=== PATIENT | male | born 1995 | race African-American/Black ===

== ENCOUNTER 2020-08-30 06:44 | Emergency (ER) | payer SELFPAY ==
[2020-08-30 08:05] LABS: APPEARANCE,URINE CLEAR; BILIRUBIN,URINE NEGATIVE (NEGATIVE); COLOR,URINE STRAW; GLUCOSE, URINE NEGATIVE (NEGATIVE); KETONES,URINE NEGATIVE (NEGATIVE); LEUKOCYTE ESTERASE,URINE NEGATIVE (NEGATIVE); NITRITE,URINE NEGATIVE (NEGATIVE); PROTEIN,URINE NEGATIVE (NEGATIVE); URINE SPECIFIC GRAVITY 1.011; UROBILINOGEN,URINE NEGATIVE mg/dL (<2.0)
--- NOTE | 2020-08-30 10:21 | RADIOLOGY REPORT (SQ) ---
EXAM DESCRIPTION: U/S SCROTUM W/DOPPLER IMAGES COMPLETED DATE/TIME: 08/30/2020 10:10 am REASON FOR STUDY: LEFT SCROTAL PAIN COMPARISON: None. TECHNIQUE: Static and realtime blanco scale imaging of the scrotum and testes. Selected color Doppler and spectral images recorded to document blood flow. LIMITATIONS: None. FINDINGS: RIGHT: TESTICLE: Normal size. Normal echotexture. Normal blood flow. No mass. EPIDIDYMIS: Normal. HYDROCELE OR VARICOCELE: No. HERNIA OR EXTRA-TESTICULAR MASS: No. OTHER: No other significant finding. LEFT: TESTICLE: Normal size. Normal echotexture. Normal blood flow. No mass. EPIDIDYMIS: Normal. HYDROCELE OR VARICOCELE: Small left-sided varicocele. HERNIA OR EXTRA-TESTICULAR MASS: No. OTHER: No other significant finding. IMPRESSION: Small left-sided varicocele. No evidence of torsion. TECHNICAL DOCUMENTATION: JOB ID: [id number] [employer]- All Rights Reserved Reading location - IP/workstation name: [email or web address]
[2020-08-30 10:53] VITALS: BP 146/85
--- NOTE | 2020-08-30 11:00 | ER Document Report ---
Entered by CASSY DRUMMOND SCRIBE 08/30/20 0823 Acting as scribe for:SANTHOSH PARRISH MD ED GI/ - General Chief Complaint: Testicular Swelling Stated Complaint: TESTICLE PAIN Mode of Arrival: Ambulatory Information source: Patient Notes: This 24 year old male patient presents to the ED today for with complaints of testicular pain. Patient states that he noticed a "little bump" on the base of his shaft x3 days ago; it was not painful and there was no drainage. He reports that he started having left testicular pain while at work this morning at 0400 and it made him nauseous. Denies pain or burning with urination. TRAVEL OUTSIDE OF THE [place] IN LAST 30 DAYS: No - Related Data Allergies/Adverse Reactions: No Known Allergies Allergy (Verified 08/30/20 07:48) Past Medical History - Social History Smoking Status: Never Smoker Family History: Reviewed & Not Pertinent Review of Systems - Review of Systems Constitutional: No symptoms reported EENT: No symptoms reported Cardiovascular: No symptoms reported Respiratory: No symptoms reported Gastrointestinal: See HPI, Nausea Genitourinary: See HPI. denies: Burning, Pain Male Genitourinary: See HPI, Testicular pain. denies: Penile discharge Musculoskeletal: No symptoms reported Skin: No symptoms reported Hematologic/Lymphatic: No symptoms reported Neurological/Psychological: No symptoms reported -: Yes All other systems reviewed and negative Physical Exam - Vital signs Vitals: Temp Pulse Resp BP Pulse Ox 97.9 F 69 18 146/85 H 100 08/30/20 10:52 08/30/20 10:52 08/30/20 10:52 08/30/20 10:52 08/30/20 10:52 - General General appearance: Alert In distress: None - HEENT Head: Normocephalic, Atraumatic Eyes: Normal Pupils: PERRL - Respiratory Respiratory status: No respiratory distress Chest status: Nontender Breath sounds: Normal Chest palpation: Normal - Cardiovascular Rhythm: Regular Heart sounds: Normal auscultation Murmur: No Friction rub: No Gallop: None auscultated - Abdominal Inspection: Normal Distension: No distension Bowel sounds: Normal Tenderness: Nontender - Abdomen soft Organomegaly: No organomegaly - Genitourinary Inspection: Normal - No obvious lump or bump appreciated Tenderness: Testicle tender - Patient complains of pain near the back of his left testicle near the epididymis when I left his left testicle. No tenderness palpated on the right. - Back Back: Normal, Nontender - Extremities General upper extremity: Normal inspection General lower extremity: Normal inspection. No: Edema - Neurological Neuro grossly intact: Yes Orientation: AAOx4 Calder Coma Scale Eye Opening: Spontaneous Calder Coma Scale Verbal: Oriented Calder Coma Scale Motor: Obeys Commands Calder Coma Scale Total: 15 - Psychological Associated symptoms: Normal affect, Normal mood - Skin Skin Temperature: Warm Skin Moisture: Dry Skin Color: Normal Course - Re-evaluation Re-evalutation: 08/30/20 10:54 Patient resting comfortably not showing signs of distress - Vital Signs Vital signs: Temp Pulse Resp BP Pulse Ox 97.9 F 69 18 146/85 H 100 08/30/20 10:52 08/30/20 10:52 08/30/20 10:52 08/30/20 10:52 08/30/20 10:52 Vital signs stable. - Laboratory Laboratory results interpreted by me: Urine Color STRAW 08/30/20 07:45 Urine Appearance CLEAR 08/30/20 07:45 Urine pH 6.0 (5.0-9.0) 08/30/20 07:45 Ur Specific [place] 1.011 08/30/20 07:45 Urine Protein NEGATIVE mg/dL (NEGATIVE) 08/30/20 07:45 Urine Glucose (UA) NEGATIVE mg/dL (NEGATIVE) 08/30/20 07:45 Urine Ketones NEGATIVE mg/dL (NEGATIVE) 08/30/20 07:45 Urine Blood NEGATIVE (NEGATIVE) 08/30/20 07:45 Urine Nitrite NEGATIVE (NEGATIVE) 08/30/20 07:45 Ur Leukocyte Esterase NEGATIVE (NEGATIVE) 08/30/20 07:45 Urine WBC (Auto) 0 /HPF 08/30/20 07:45 Urinalysis is clear not showing any abnormality specific gravity 1.011 no white blood cells present leukocyte Estrace negative nitrite negative blood negative. - Diagnostic Test Radiology reviewed: Image reviewed, Reports reviewed Radiology results interpreted by me: 08/30/20 10:24 Scrotum Ultrasound 08/30/20 08:22 IMPRESSION: Small left-sided varicocele. No evidence of torsion. Discharge - Discharge Clinical Impression: Varicocele present on ultrasound of scrotum Disposition: HOME, SELF-CARE Additional Instructions: We learned today on ultrasound that you have a varicocele present on the left side. This is not a tumor or mass or malignancy. However we do recommend you follow-up with urology regarding further management if this continues to be a problem to you. Referrals: TIM JIMENEZ MD [NO LOCAL MD] - Follow up as needed I personally performed the services described in the documentation, reviewed and edited the documentation which was dictated to the scribe in my presence, and it accurately records my words and actions.
== END 2020-08-30 11:04 | disposition home or self-care (01) ==
LOC: ER 06:44
DX: I86.1 Scrotal varices (principal); N50.812 Left testicular pain; R11.0 Nausea
CPT/HCPCS: 76870; 81001; 93976; 99284